=== PATIENT | male | born 1950 | race Caucasian/White ===

== ENCOUNTER 2018-09-22 06:01 | Inpatient (IN) | payer OTHER ==
[2018-09-22] MEDS ORDERED: ceFAZolin 2 GM/DEXTROSE 100 ML IV ONE (06:14)
[2018-09-22] MEDS ORDERED: ACETAMINOPHEN 325 MG TAB PO ONE (06:14)
[2018-09-22] MEDS ORDERED: LR 1,000 ML IV ONE (06:14)
[2018-09-22] MEDS ORDERED: DEXAMETHASONE 4 MG/ML VIAL IVP ONE (06:14)
[2018-09-22] MEDS ORDERED: FAMOTIDINE 20 MG TAB PO ONE (06:14)
--- NOTE | 2018-09-22 06:14 | PDHPUP ---
History & Physical Update H&P update statement: This history and physical update is based on an assessment of the patient which was completed after admission or registration (within 24 hours), but prior to the surgery/procedure. H&P update: H&P reviewed & patient examined, no change in patient's condition since H&P completed
[2018-09-22] MEDS ORDERED: MIDAZOLAM 2 MG/2 ML VIAL IVP ONE ×2 (06:57→07:22)
--- NOTE | 2018-09-22 06:59 | PDANEPAE ---
ANE Past Medical History - Cardiovascular History Hx Hypertension: No Hx Arrhythmias: No Hx Chest Pain: No Hx Coronary Artery / Peripheral Vascular Disease: No Hx CHF / Valvular Disease: No Hx Palpitations: No Cardiovascular History Comment: low BP's cause dizziness - Pulmonary History Hx COPD: No Hx Asthma/Reactive Airway Disease: Yes Hx Recent Upper Respiratory Infection: No Hx Oxygen in Use at Home: No Hx Sleep Apnea: No Sleep Apnea Screening Result - Last Documented: Negative Pulmonary History Comment: asthma uses inhalers- instructed pt to bring to hospital - Neurologic History Hx Cerebrovascular Accident: No Hx Seizures: No Hx Dementia: No - Endocrine History Hx Diabetes: No - Renal History Hx Renal Disorders: No - Liver History Hx Hepatic Disorders: No - Neurological & Psychiatric Hx Hx Neurological and Psychiatric Disorders: No - Cancer History Hx Cancer: No - Congenital Disorder History Hx Congenital Disorders: No - GI History Hx Gastrointestinal Disorders: No - Other Health History Other Health History: wears glasses. bilateral hearing aides - Chronic Pain History Chronic Pain: Yes (right knee, occ left knee) - Surgical History Prior Surgeries: Left TKA 2018. tonisillectomy 30+ yrs ago. knee surgery in HS. undescended testicle repair. labral tear in left shoulder repaired. bilateral meniscus and cartiledge repairs ANE Review of Systems Review of Systems: - Exercise capacity METS (RN): 4 METS ANE Patient History - Allergies Allergies/Adverse Reactions: erythromycin base Allergy (Verified 09/06/18 11:49) Stomach Cramp gluten Allergy (Verified 09/06/18 11:51) celiac disease nickel Allergy (Verified 09/06/18 11:49) Rash thimerosal Allergy (Verified 09/06/18 11:49) bad eye reaction that caused him to almost lose an eye neoprene Allergy (Uncoded 09/06/18 11:51) very bad rash - Home Medications Home medications: home medication list seen and reviewed Home Medications: Albuterol [Proventil Inhaler HFA (*)] 1 - 2 puffs IH Q4H PRN 08/30/18 [Last Taken 3 Months Ago ~06/22/18] Aspirin [Aspirin 81mg (*)] 81 mg PO DAILY 08/30/18 [Last Taken 2 Weeks Ago ~] Atorvastatin Calcium [Lipitor 40 mg (*)] 40 mg PO HS 08/30/18 [Last Taken 1 Day Ago ~09/21/18] Budesonide/Formoterol 160/4.5 [Symbicort 160-4.5 Mcg Inh (*)] 1 puffs IH BID PRN 08/30/18 [Last Taken 3 Days Ago ~09/19/18] Glucosamine Sulfate [Glucosamine Sulfate 500 MG (*)] 3,000 mg PO DAILY 08/30/18 [Last Taken 2 Weeks Ago ~09/08/18] Midodrine HCl [Proamatine 5 mg (RX)] 5 mg PO BID 08/30/18 [Last Taken 09/22/18 05:15] diphenhydrAMINE [Benadryl 25 MG (*)] 25 mg PO HS PRN 08/30/18 [Last Taken 1 Day Ago ~09/21/18] - NPO status NPO Status: no food or drink >8 hours NPO Since - Liquids (Date): 09/21/18 NPO Since - Liquids (Time): 22:30 NPO Since - Solids (Date): 09/21/18 NPO Since - Solids (Time): 21:30 - Smoking Hx Smoking Status: Never smoked - Family Anes Hx Family Hx Anesthesia Complications: none ANE Labs/Vital Signs - Labs - CBC Platelet Count: 271 - Vital Signs Height: 180.34 cm Weight: 83.915 kg ANE Anesthesia Plan Anesthesia Plan: spinal Regional Anesthesia: adductor canal FNB
[2018-09-22] MEDS ORDERED: TRANEXAMIC ACID 3,000 MG/50 ML BAG IRR ONE (07:02)
[2018-09-22] MEDS ORDERED: ROPIVACAINE 0.2% 80 MG, EPINEPHrine 0.2 MG, KETOROLAC TROMETHAMINE 30 MG in SYRINGE 0 ML IU ONE (07:15)
[2018-09-22] MEDS ORDERED: TRANEXAMIC ACID 3,000 MG in NS (SYRINGE) 50 ML IRR ONE (07:15)
[2018-09-22] MEDS ORDERED: BUPIVACAINE/DEXTROSE 7.5MG/ML 2 ML SPINAL AMP SP ONE (07:23)
[2018-09-22] MEDS ORDERED: PROPOFOL/EMULSION 500 MG/50 ML BOTTLE IV ONE (07:23)
[2018-09-22] MEDS ORDERED: VANCOMYCIN 1 GM VIAL ONE (07:30)
[2018-09-22] MEDS ORDERED: ONDANSETRON DISINTEGRATING 4 MG TAB PO PRN (08:42)
[2018-09-22] MEDS ORDERED: BISACODYL 10 MG SUPP PR PRN (08:42)
[2018-09-22] MEDS ORDERED: ONDANSETRON 4 MG/2 ML VIAL IVP PRN ×2 (08:42→09:17)
[2018-09-22] MEDS ORDERED: TEMAZEPAM 15 MG CAP PO PRN (08:42)
[2018-09-22] MEDS ORDERED: DIPHENOXYLATE/ATROPINE LOMOTIL 1 TAB PO PRN (08:42)
[2018-09-22] MEDS ORDERED: diphenhydrAMINE 25 MG CAP PO PRN (08:42)
[2018-09-22] MEDS ORDERED: LACTULOSE 20 GM/30 ML UDCUP PO PRN (08:42)
[2018-09-22] MEDS ORDERED: MAGNESIUM HYDROXIDE 30 ML UDCUP PO PRN (08:42)
[2018-09-22] MEDS ORDERED: METOCLOPRAMIDE 10 MG/2 ML VIAL IVP PRN ×2 (08:42→09:17)
[2018-09-22] MEDS ORDERED: CYCLOBENZAPRINE 10 MG TAB PO PRN (08:42)
[2018-09-22] MEDS ORDERED: PROMETHAZINE HCL 25 MG/ML INJ IVP PRN (08:42)
[2018-09-22] MEDS ORDERED: PROMETHAZINE HCL 25 MG SUPPR PR PRN (08:42)
[2018-09-22] MEDS ORDERED: POLYETHYLENE GLYCOL 3350 17 GM PKT PO PRN (08:42)
[2018-09-22] MEDS ORDERED: LR 1,000 ML IV SCH (09:00)
[2018-09-22] MEDS ORDERED: ALBUTEROL 60 PUFFS/8 GM MDI IH PRN (09:00)
[2018-09-22] MEDS ORDERED: NALOXONE HCL 0.4 MG/ML INJ IVP PRN (09:17)
[2018-09-22] MEDS ORDERED: fentaNYL 100 MCG/2 ML INJ IVP PRN (09:17)
[2018-09-22] MEDS ORDERED: MEPERIDINE 25 MG/0.5 ML AMP IVP PRN (09:17)
[2018-09-22] MEDS ORDERED: HYDROmorphONE/DILAUDID 2 MG/ML INJ IVP PRN (09:17)
[2018-09-22] MEDS ORDERED: DEXAMETHASONE 4 MG/ML VIAL IVP PRN (09:17)
[2018-09-22] MEDS ORDERED: DIAZEPAM 5 MG/ML 1 ML SYR IVP PRN (09:17)
[2018-09-22] MEDS ORDERED: ROPIVACAINE HCL 150 MG/30 ML INJ ONE (09:21)
[2018-09-22] MEDS ORDERED: PROPOFOL 200 MG/20 ML VIAL ONE (09:33)
--- NOTE | 2018-09-22 09:50 | POSTOPPROG ---
Post Op Note Date of Operation: 09/22/18 Surgeon: Rossy Bernstein Soft Iron Inspector: Umu Bernstein and Elo Ren PA-C Anesthesiologist: Dr. Shah Anesthesia: Spinal, Other (Specify) (adductor canal block) Pre-op Diagnosis: right knee OA Post-op Diagnosis: same Indication: right knee pain Procedure: right TKA Findings: severe OA of right knee Inf/Abcess present in the surg proc area at time of surgery?: No EBL: 50-100
--- NOTE | 2018-09-22 11:29 | POSTANESTH ---
Post Anesthetic Evaluation Cardiovascular Status: Normal, Stable Respiratory Status: Normal, Stable Level of Consciousness/Mental Status: Can Participate in Eval Pain Control: Adequate, Prn Tx Ordered Nausea/Vomiting Control: Adequate, Prn Tx Ordered Complications Possibly Related to Anesthesia: None Noted
--- NOTE | 2018-09-22 11:40 | PDMN ---
Medical Necessity Medical necessity: Pt meets IP criteria per PA; est los >2 mn for HTN, pain control & close monitoring postop as pt is on medication & has hx of hypotension s/p R TKA (cpt 86142)
[2018-09-22] MEDS: SENNOSIDES/DOCUSATE SODIUM TAB PO SCH ×2 (12:31→20:18)
[2018-09-22] MEDS: ACETAMINOPHEN 325 MG TAB PO SCH ×2 (12:31→17:51)
[2018-09-22] MEDS ORDERED: MIDODRINE HCL 5 MG TAB PO SCH (16:00)
[2018-09-22] MEDS: ceFAZolin 2 GM/DEXTROSE 100 ML IV SCH (16:34)
[2018-09-22] MEDS: MIDODRINE HCL 5 MG TAB PO SCH (20:18)
[2018-09-22] MEDS: ASPIRIN 81 MG CHEWABLE TAB PO SCH (20:18)
[2018-09-22] MEDS: FAMOTIDINE 20 MG TAB PO SCH (20:19)
[2018-09-22] MEDS ORDERED: BUDESONIDE/FORMOTEROL 160/4.5 60 PUFFS/MDI IH PRN (21:00)
[2018-09-22] MEDS ORDERED: ATORVASTATIN CALCIUM 40 MG TAB PO SCH (21:00)
[2018-09-23] MEDS: ACETAMINOPHEN 325 MG TAB PO SCH ×2 (00:26→07:05)
[2018-09-23] MEDS: ceFAZolin 2 GM/DEXTROSE 100 ML IV SCH (00:26)
[2018-09-23 07:51] VITALS: BP 127/82
[2018-09-23] MEDS: SENNOSIDES/DOCUSATE SODIUM TAB PO SCH (08:55)
[2018-09-23] MEDS: MIDODRINE HCL 5 MG TAB PO SCH (08:55)
[2018-09-23] MEDS: FAMOTIDINE 20 MG TAB PO SCH (08:56)
[2018-09-23] MEDS: ASPIRIN 81 MG CHEWABLE TAB PO SCH (08:56)
[2018-09-23] MEDS: oxyCODONE IR 5 MG TAB PO PRN ×2 (09:04→11:08)
--- NOTE | 2018-09-23 09:30 | SOAPPROG ---
SOAP Progress Note Assessment/Plan: Assessment: Patient is doing well POD 1 s/p R TKA Pain management: pain is well controlled on oral pain meds. VTE ppx: recommend aspirin 81 mg BID for 4 weeks, cont ALBERT and SCDs Anemia: level is expected initially postop. Asymptomatic. Continue to monitor D/c planning: Patient has done better than anticipated and would like to be discharged to home today. Patient must be released from PT before discharge to home. postop urinary retention: straight cath'd yesterday, resolved today. Plan: 09/23/18 09:29 Subjective: patient is doing well today, denies SOB, chest pain and N/V Objective: Vital Signs Temp Pulse Resp BP Pulse Ox 35.8 C L 83 12 127/82 H 98 09/23/18 07:50 09/23/18 07:50 09/23/18 07:50 09/23/18 07:50 09/23/18 07:50 Laboratory Results 09/23/18 04:59 09/22/18 09/23/18 09/24/18 05:59 05:59 05:59 Intake Total 1770 Output Total 1980 Balance -210 RLE: incision dressing is clean and dry, NVI, +pf/df ICD10 Worksheet Patient Problems: Problems Problem Status Onset Primary localized osteoarthritis of right knee Acute
--- NOTE | 2018-09-23 09:39 | ASMTLACE ---
LACE Length of stay for Answers: 2 days current admission Acuity / Level of Answers: Yes Care: Did the patient have an inpatient admission? Comorbidities - select Answers: Coronary Artery Disease all that apply Opioid dependence / Chronic pain Other Notes: HLD # of Emergency department Answers: 0 visits in the last 6 months Score: 12 Date Signed: 09/23/2018 09:38 AM Electronically Signed By:TIM Benito
--- NOTE | 2018-09-23 11:51 | GDS ---
[f rep st] DISCHARGE SUMMARY SUPERVISING PHYSICIAN: Abhi Bernstein MD ADMISSION DIAGNOSIS: Right knee osteoarthritis. DISCHARGE DIAGNOSIS: Right knee osteoarthritis. PROCEDURE: Right total knee arthroplasty. VTE PROPHYLAXIS: Recommend aspirin 81 mg twice daily for 4 weeks. BRIEF DESCRIPTION OF HOSPITAL STAY: Patient was admitted for an elective joint arthroplasty. The pa tient tolerated the procedure well and has passed physical therapy. The patient was given appropriat e antibiotic prophylaxis and venous thromboembolism prophylaxis. The patient's pain was well control led on oral pain medication, patient was holding down food, and had urinated. Decision was made to d ischarge the patient. The patient was given post-operative prescriptions pre-operatively. PLAN: Follow up with Dr. Bernstein's office on October 14 at 10 a.m. /[id number]/MODL
--- NOTE | 2018-09-23 13:01 | GOP ---
[f rep st] OPERATIVE REPORT DATE OF OPERATION: 09/22/2018 SURGEON: Abhi Bernstein MD OIL SEAL ASSEMBLER: 1. GEOVANNY Murphy. 2. GEOVANNY Abarca. ANESTHESIA: Spinal. PREOPERATIVE DIAGNOSIS: Right knee osteoarthritis. POSTOPERATIVE DIAGNOSIS: Right knee osteoarthritis. PROCEDURE PERFORMED: Right total knee arthroplasty. FINDINGS: ESTIMATED BLOOD LOSS: 30 cc. INDICATIONS: This is a 68-year-old male with severe and progressive pain and deformity of the right knee unresponsive to conservative care. Risks and benefits of the surgical intervention were explain ed in detail. DESCRIPTION OF PROCEDURE: The patient was brought to the operative room and placed on the table in t he supine position. Spinal anesthesia was induced without difficulty. A pneumatic tourniquet was ap plied about the right proximal thigh, and the leg was prepped and draped in a sterile fashion. The l eg collier was applied. After exsanguination by elevation the tourniquet was inflated to 250 mm of me rcury. Incision was made anterior medial from the tibial tuberosity to a point 2 cm proximal to the superior pole of the patella. Medial parapatellar arthrotomy was carried out from the superior pole of the p atella and posteriorly in line with the fibers of the Type II VMO. The medial collateral ligament wa s elevated and the infrapatellar fat pad was resected. The patella was everted and the articular surface was excised. A 35 mm patellar button was placed. T he distal femoral guide hole was drilled and the 6 degree alignment stewart was placed. A 10 mm distal f emoral cut was made without difficulty. Attention was turned to the tibia and a standard 9 mm cut based on the lateral tibial condyle was per formed. The tibial articular surface was excised without difficulty. Attention was turned back to the femur and a size 7 Journey II femoral cutting block was positioned. Anterior, posterior, and chamfer cuts were made, followed by the intercondylar box cut. The knee was extended and the remnants of the medial and lateral meniscus were excised. The posterio r capsule was injected with ropivacaine, epinephrine and Toradol. A size 7 Journey Rivera and Nephew tibial tray was positioned. Trial reduction was then carried out. There was excellent range of rae on, alignment, and stability using the 9 mm polyethylene. All trials were then removed. The joint was thoroughly irrigated and carefully dried. Two packages of cement and 2 grams of vancomycin were mixed in the vacuum mixer and placed on the fixation surface s of all surfaces of the components. The components were implanted and all excess cement was thoroug hly removed. The permanent 9 mm polyethylene was placed without difficulty. The tourniquet was deflated and all bleeders were coagulated. The wound was thoroughly irrigated and closed using interrupted sutures of 2-0 Vicryl for the joint capsule. The subcu was closed with 3-0 Vicryl and the skin with 4-0 Monocryl. Dermabond and Steri-Strips were applied followed by a compre ssive dressing. The patient was then moved from the operating room to the recovery room in good cond ition, having tolerated the procedure well. PATHOLOGY: Severe tricompartmental osteoarthritis. /[id number]/MODL
== END 2018-09-23 11:45 | disposition home or self-care (01) | DRG 470 ==
LOC: F3N 06:01 → OBSVTOIN 08:45 → F3N 10:47 → EDSTATUS 14:00
PROVIDERS: ADMIT Orthopaedic Surgery; ATTEND Orthopaedic Surgery
PROC: 0SRC0J9 Replacement of Right Knee Joint with Synthetic Substitute, Cemented, Open Approach (ICD-10-PCS; principal; 2018-09-22 08:00)
DX: M17.11 Unilateral primary osteoarthritis, right knee (principal); Z96.652 Presence of left artificial knee joint; R33.9 Retention of urine, unspecified
CPT/HCPCS: 97110-GP; 97116-GP; 97161-GP; C1713; J0171; J0690; J1100; J1885; J2250; J2704; J2795; J3370